=== PATIENT | female | born 1990 | race African-American/Black ===

== ENCOUNTER 2022-01-10 04:47 | Emergency (ER) | payer MEDICAID | END 2022-01-10 05:03 | disposition home or self-care (01) | LOC: CSHERS 04:47 | DX: S46.912A Strain of unspecified muscle, fascia and tendon at shoulder and upper arm level, left arm, initial encounter (principal); X58.XXXA Exposure to other specified factors, initial encounter | CPT/HCPCS: 99283 ==

== ENCOUNTER 2022-03-29 05:13 | Emergency (ER) | payer MEDICAID ==
[2022-03-29] MEDS ORDERED: Dicyclomine 20 MG/2 ML VIAL ONE (05:48)
[2022-03-29] MEDS ORDERED: Ondansetron ODT 4 MG TAB ONE (05:48)
== END 2022-03-29 06:10 | disposition home or self-care (01) ==
LOC: EEVIPCON 05:13 → CSHERS 05:13
DX: R11.2 Nausea with vomiting, unspecified (principal); R19.7 Diarrhea, unspecified
CPT/HCPCS: 96372; 99283; Q0162